=== PATIENT | male | born 1955 | race Caucasian/White ===

== ENCOUNTER 2017-01-24 10:47 | Day surgery (SDC) | payer MEDICAID ==
[2017-01-24 11:35] VITALS: PULSE 84
[2017-01-24] MEDS ORDERED: LR 1,000 ML IV ONE (11:35)
--- NOTE | 2017-01-24 12:14 | PDANEPAE ---
ANE Past Medical History - Cardiovascular History Hx Hypertension: No Hx Arrhythmias: No Hx Chest Pain: No Hx Coronary Artery / Peripheral Vascular Disease: No Hx CHF / Valvular Disease: No Hx Palpitations: No - Pulmonary History Hx COPD: No Hx Asthma/Reactive Airway Disease: No Hx Recent Upper Respiratory Infection: No Hx Oxygen in Use at Home: No Hx Sleep Apnea: No Sleep Apnea Screening Result - Last Documented: Negative - Neurologic History Hx Cerebrovascular Accident: No Hx Seizures: No Hx Dementia: No - Endocrine History Hx Diabetes: No Hypothyroid: No Hyperthyroid: No Obesity: no - Renal History Hx Renal Disorders: No Renal History Comment: chronic inflammation of Prostate -uses Flomax - Neurological & Psychiatric Hx Hx Neurological and Psychiatric Disorders: No - Cancer History Hx Cancer: No - Congenital Disorder History Hx Congenital Disorders: No - GI History GERD: no Hx Gastrointestinal Disorders: No - Other Health History Other Health History: screening colonoscopy - Chronic Pain History Chronic Pain: No - Surgical History Prior Surgeries: none ANE Review of Systems - Exercise capacity METS (RN): 5 METS ANE Patient History - Allergies Allergies/Adverse Reactions: No Known Allergies Allergy (Unverified 01/22/17 11:53) - Home Medications Home Medications: Flomax 01/22/17 [Last Taken 01/23/17 20:00] Jublia 01/22/17 [Last Taken 01/24/17 07:00] - NPO status NPO Since - Liquids (Date): 01/24/17 NPO Since - Liquids (Time): 01:00 NPO Since - Solids (Date): 01/23/17 NPO Since - Solids (Time): 07:00 - Anes Hx Anes Hx: no prior problems - Smoking Hx Smoking Status: Never smoked - Alcohol Use Alcohol Use: Occasionally - Family Anes Hx Family Anes Hx: neg - N/A ANE Labs/Vital Signs - Vital Signs Blood Pressure: 131/91 Heart Rate: 84 Respiratory Rate: 14 O2 Sat (%): 95 Height: 182.88 cm Weight: 78.018 kg ANE Physical Exam - Airway Mallampati Score: Class 1 Mouth exam: normal dental/mouth exam - Pulmonary Pulmonary: no respiratory distress, no rales or rhonchi, clear to auscultation - Cardiovascular Cardiovascular: regular rate and rhythym, no murmur, rub, or gallop - ASA Status ASA Status: II ANE Anesthesia Plan Anesthesia Plan: MAC
[2017-01-24] MEDS ORDERED: MIDAZOLAM 2 MG/2 ML VIAL IVP ONE (12:15)
[2017-01-24] MEDS ORDERED: fentaNYL 100 MCG/2 ML INJ ONE (12:17)
[2017-01-24] MEDS ORDERED: LIDOCAINE 2% 5 ML SDV ONE (12:18)
[2017-01-24] MEDS ORDERED: PROPOFOL/EMULSION 500 MG/50 ML BOTTLE IV ONE (12:18)
[2017-01-24] MEDS ORDERED: PHENYLEPHRINE HCL 100 MCG/ML SYR ONE ×2 (12:33)
[2017-01-24] MEDS ORDERED: ONDANSETRON 4 MG/2 ML VIAL IVP PRN (12:37)
[2017-01-24] MEDS ORDERED: NALOXONE HCL 0.4 MG/ML INJ IVP PRN (12:37)
[2017-01-24] MEDS ORDERED: ACETAMINOPHEN 500 MG TAB PO PRN (12:37)
[2017-01-24] MEDS ORDERED: D5W LR 500 ML IV PRN (12:37)
--- NOTE | 2017-01-24 13:14 | POSTANESTH ---
Post Anesthetic Evaluation Cardiovascular Status: Normal, Stable Respiratory Status: Normal, Stable Level of Consciousness/Mental Status: Can Participate in Eval Pain Control: Adequate, Prn Tx Ordered Nausea/Vomiting Control: Adequate, Prn Tx Ordered Complications Possibly Related to Anesthesia: None Noted
[2017-01-24 14:17] VITALS: O2SAT 96
[2017-01-24 14:26] VITALS: BP 117/73; RESP 16
[2017-01-24 14:30] VITALS: TEMP 97.5
--- NOTE | 2017-01-24 16:28 | GPN ---
[f rep st] PROCEDURE NOTE DATE OF PROCEDURE: 01/24/2017 PROCEDURE: Colonoscopy with snare polypectomy. INDICATION: Average risk colon cancer screening. CONSENT: Informed consent was obtained from the patient after an explanation of risks, benefits, and alternatives to the procedure. MEDICATIONS GIVEN: Propofol per Anesthesia. DESCRIPTION OF EXAM: After adequate sedation was achieved, the colonoscope was advanced under direct vision through the anal orifice and as far as the cecum. Views were good. Patient's tolerance was good. Prep was good. Photographs were taken of the ileocecal valve, appendiceal orifice, and retroflexed in the ascending colon and the rectum. ESTIMATED BLOOD LOSS: Minimal. COMPLICATIONS: None. FINDINGS: 1. Two 5 mm sessile polyps were found in the descending colon and removed with cold snare polypectomy. 2. A 1 cm pedunculated polyp was found in the sigmoid colon and removed with hot snare polypectomy. 3. Medium-sized internal hemorrhoids were seen. IMPRESSION: Three polyps, 1 of which was 1 cm, were removed from the descending /sigmoid colon. RECOMMENDATIONS: 1. Await pathology. 2. Resume regular medications. 3. Date of next surveillance colonoscopy will be determined based on pathology results. Given presence of a 1 cm pedunculated polyp, I suspect I will recommend followup in 3 years. 4. Regular diet. /[id number]/MODL MTDD
== END 2017-01-24 14:15 | disposition home or self-care (01) ==
LOC: FSGY 10:47
PROVIDERS: ATTEND Internal Medicine
PROC: 0DBE8ZX Excision of Large Intestine, Via Natural or Artificial Opening Endoscopic, Diagnostic (ICD-10-PCS; principal; 2017-01-24 11:45)
DX: D12.4 Benign neoplasm of descending colon (principal); Z12.11 Encounter for screening for malignant neoplasm of colon; K64.8 Other hemorrhoids
CPT/HCPCS: J2370; J2704; J3010

== ENCOUNTER → 2017-09-24 | Outpatient (CLI) | payer MEDICAID ==
[~2017-09-24] MED LIST: GADOBUTROL 10 ML VIAL IVP ONE
== END ==
LOC: FIMAGING 15:55
PROVIDERS: ATTEND Urology
DX: N40.0 Benign prostatic hyperplasia without lower urinary tract symptoms (principal)
CPT/HCPCS: A9585